=== PATIENT | male | born 1950 | race Caucasian/White ===

== ENCOUNTER → 2017-05-29 | Outpatient (CLI) | payer OTHER | END | disposition home or self-care (01) | LOC: HKI 13:02 | DX: M16.11 Unilateral primary osteoarthritis, right hip (principal); I10 Essential (primary) hypertension; Z96.642 Presence of left artificial hip joint; Z82.3 Family history of stroke | CPT/HCPCS: 73502 ==

== ENCOUNTER → 2017-06-29 | Outpatient (CLI) | payer OTHER | END | disposition home or self-care (01) | LOC: LAB 08:00 | DX: Z02.9 Encounter for administrative examinations, unspecified (principal) | CPT/HCPCS: 87081 ==

== ENCOUNTER 2017-07-09 08:22 | Inpatient (IN) | payer OTHER ==
[2017-07-09] MEDS: CEFAZOLIN 2 GM/50 ML (PMX) 50 ML (FOR WT < 120 KG) IVPB (06:00)
[2017-07-09] MEDS: TRANEXAMIC ACID 1,000 MG in D5W 100 ML AT CLOSURE X1 IVPB (06:00)
[2017-07-09] MEDS: TRANEXAMIC ACID 1,000 MG in D5W 100 ML AT INCISION X1 IVPB (06:00)
[~2017-07-09 08:22] MED LIST: LIDOCAINE 2% (SDV) 5 ML INJ
[2017-07-09] MEDS: ONDANSETRON 4 MG INJ IV ×4 (09:22→20:58)
[2017-07-09] MEDS: LANSOPRAZOLE 30 MG CAP PO (09:22)
[2017-07-09] MEDS: ACETAMINOPHEN 1000MG/100ML IV 100 ML IVPB (09:22)
[2017-07-09] MEDS: DEXAMETHASONE 4 MG/ML 1 ML INJ IV (09:22)
[2017-07-09] MEDS: LACTATED RINGER'S 1,000 ML IV (09:23)
[2017-07-09] MEDS ORDERED: BUPIVACAINE 0.75%/DEXT (SPINAL) 2 ML INJ (11:11)
[2017-07-09] MEDS ORDERED: EPINEPHrine 1 MG INJ (11:12)
[2017-07-09] MEDS ORDERED: ROCURONIUM 50 MG INJ (11:16)
[2017-07-09] MEDS ORDERED: PROPOFOL 20 ML (11:16)
[2017-07-09] MEDS ORDERED: MIDAZOLAM 1 MG/ML 2 ML INJ (11:19)
[2017-07-09] MEDS ORDERED: BACITRACIN 50000 UNITS INJ (11:44)
[2017-07-09] MEDS ORDERED: POLYMYXIN B 500000 UNIT INJ (11:46)
[2017-07-09] MEDS ORDERED: CEFAZOLIN 1 GM INJ (12:19)
[2017-07-09] MEDS: POLYMYXIN B 500000 UNIT INJ (12:41)
[2017-07-09] MEDS: BACITRACIN 50000 UNITS INJ (12:41)
[2017-07-09] MEDS ORDERED: GLYCOPYRROLATE 0.4 MG INJ (13:53)
[2017-07-09] MEDS ORDERED: NEOSTIGMINE 3 MG/3 ML SYRINGE (13:53)
[2017-07-09] MEDS ORDERED: CEFAZOLIN 1 GM/50 ML (PMX) 50 ML IVPB (14:24)
[2017-07-09] MEDS ORDERED: DOCUSATE SODIUM 100 MG CAP PO (14:24)
[2017-07-09] MEDS ORDERED: ASPIRIN (EC) 325 MG TAB PO (14:25)
[2017-07-09] MEDS ORDERED: ONDANSETRON 4 MG INJ (14:26)
[2017-07-09] MEDS ORDERED: HYDROmorphONE (0.2 MG/ML) 10ML SYG IV ×3 (14:26→14:30)
[2017-07-09] MEDS: HYDROmorphONE (0.2 MG/ML) 10ML SYG IV ×3 (14:28→15:00)
[2017-07-09] MEDS: DOCUSATE SODIUM 100 MG CAP PO (14:29)
[2017-07-09] MEDS: ASPIRIN (EC) 325 MG TAB PO (14:29)
[2017-07-09] MEDS: CEFAZOLIN 1 GM/50 ML (PMX) 50 ML IVPB ×2 (14:29→23:09)
[2017-07-09] MEDS ORDERED: SENNA/DOCUSATE NA (8.6MG/50MG) TAB PO (14:30)
[2017-07-09] MEDS ORDERED: BISACODYL 10 MG SUPP PR (14:30)
[2017-07-09] MEDS ORDERED: EPHEDrine SULFATE 50 MG/5 ML SYG IV (14:30)
[2017-07-09] MEDS ORDERED: FENTAnyl 50 MCG/ML VIAL IV ×3 (14:30)
[2017-07-09] MEDS ORDERED: ZOLPIDEM 5 MG TAB PO (14:30)
[2017-07-09] MEDS ORDERED: DIPHENHYDRAMINE 50 MG INJ IV ×2 (14:30)
[2017-07-09] MEDS ORDERED: oxyCODONE 5 MG TAB PO ×2 (14:30)
[2017-07-09] MEDS ORDERED: MAGNESIUM HYDROXIDE 30ML CUP PO (14:30)
[2017-07-09] MEDS ORDERED: LABETALOL HCL 20MG INJ IV (14:30)
[2017-07-09] MEDS ORDERED: hydrALAzine 20 MG INJ IV (14:30)
[2017-07-09] MEDS ORDERED: KETOROLAC 15 MG INJ IV (14:30)
[2017-07-09] MEDS ORDERED: TRIMETHOBENZAMIDE 100 MG/ML VIAL IM (14:30)
[2017-07-09] MEDS ORDERED: NALOXONE (0.4 MG/ML) INJ IV (14:30)
[2017-07-09] MEDS ORDERED: OXYCODONE/ACETAMINOPHEN (5/325) TAB PO ×2 (14:30)
[2017-07-09] MEDS ORDERED: NA PHOSPHATE/BIPHOS 133 ML ENEMA PR (14:30)
[2017-07-09] MEDS ORDERED: NACL 0.9% 3 ML SYG IV (14:30)
[2017-07-09] MEDS: MEPERIDINE 25 MG INJ IV (14:40)
[2017-07-09] MEDS: KETOROLAC 30 MG INJ IV (14:40)
[2017-07-09] MEDS: SOD CHLORIDE 0.9% 1,000 ML IV (16:34)
[2017-07-09] MEDS: oxyCODONE 5 MG TAB PO ×2 (17:27→21:04)
[2017-07-10] MEDS: SOD CHLORIDE 0.9% 1,000 ML IV ×2 (02:41→15:11)
[2017-07-10] MEDS: ONDANSETRON 4 MG INJ IV ×2 (03:22→08:09)
[2017-07-10 05:38] LABS: ADD MAN DIFF? NO
[2017-07-10 05:46] LABS: BASOPHILS % 0.1 % (0.0-2.0); EOSINOPHILS % 0.1 % (0.0-7.0); HEMATOCRIT 29.7 % (42.0-52.0); HEMOGLOBIN 10.4 g/dl (14.0-18.0); LYMPHOCYTES # 1.2 10^3/ul (0.8-2.9); LYMPHOCYTES % 12.9 % (15.0-51.0); MEAN CORPUSCULAR VOLUME 88.7 fl (82.0-101.0); MEAN PLATELET VOLUME 9.9 fl (7.4-10.4); MONOCYTE # 0.9 10^3/ul (0.3-0.9); MONOCYTES % 9.7 % (0.0-11.0); NEUTROPHIL # 7.2 10^3/ul (1.6-7.5); NEUTROPHILS % 76.9 % (39.0-77.0); PLATELET COUNT 186 10^3/UL (140-415); RED BLOOD COUNT 3.35 10^6/ul (4.70-6.10); RED CELL DISTRIBUTION WIDTH 13.6 % (11.5-14.5)
[2017-07-10 05:46] LABS: WHITE BLOOD COUNT 9.4 10^3/ul (4.8-10.8)
[2017-07-10] MEDS: LACTATED RINGER'S 1,000 ML IV (06:00)
[2017-07-10] MEDS: CEFAZOLIN 1 GM/50 ML (PMX) 50 ML IVPB (06:12)
[2017-07-10 06:14] LABS: ANION GAP 17 (8-16); BLOOD UREA NITROGEN 20 mg/dl (7-20); CALCIUM 8.8 mg/dl (8.4-10.2); CARBON DIOXIDE 24 mmol/L (21-31); CHLORIDE 103 mmol/L (97-110); CREATININE 0.98 mg/dl (0.61-1.24); GLUCOSE 133 mg/dl (70-220); POTASSIUM 4.1 mmol/L (3.5-5.1); SODIUM 140 mmol/L (135-144)
[2017-07-10] MEDS: BETHANECHOL 25 MG TAB PO (06:24)
[2017-07-10] MEDS: PANTOPRAZOLE (EC) 40 MG TAB PO (06:24)
[2017-07-10 07:47] LABS: ADD UMIC YES; UR ASCORBIC ACID NEGATIVE (NEGATIVE); UR BILIRUBIN (Dip) NEGATIVE (NEGATIVE); UR BLOOD (Dip) 1+ mg/dL (NEGATIVE); UR CLARITY CLEAR (CLEAR); UR COLOR YELLOW (YELLOW); UR GLUCOSE (Dip) NEGATIVE (NEGATIVE); UR KETONES (Dip) NEGATIVE (NEGATIVE); UR LEUKOCYTE ESTERASE (Dip) NEGATIVE Leu/ul (NEGATIVE); UR NITRITE (Dip) NEGATIVE (NEGATIVE); UR RBC 2 /HPF (0-5); UR SPECIFIC GRAVITY (Dip) 1.011 (1.003-1.030); UR TOTAL PROTEIN (Dip) NEGATIVE (NEGATIVE); UR UROBILINOGEN (Dip) NEGATIVE (NEGATIVE); UR WBC 1 /HPF (0-5)
[2017-07-10] MEDS: ASPIRIN (EC) 325 MG TAB PO (08:09)
[2017-07-10] MEDS: oxyCODONE 5 MG TAB PO ×3 (08:09→20:46)
[2017-07-10] MEDS: DOCUSATE SODIUM 100 MG CAP PO ×2 (08:10→20:39)
[2017-07-10] MEDS: FERROUS FUMARATE (SR) TAB PO ×2 (08:10→20:39)
[2017-07-10] MEDS: CELECOXIB 200 MG CAP PO (08:10)
[2017-07-10] MEDS: CELECOXIB 100 MG CAP PO (22:44)
[2017-07-11] MEDS: oxyCODONE 5 MG TAB PO (03:05)
[2017-07-11 05:47] LABS: ADD MAN DIFF? NO
[2017-07-11 05:51] LABS: BASOPHILS % 0.1 % (0.0-2.0); EOSINOPHILS # 0.1 10^3/ul (0.0-0.5); HEMATOCRIT 27.9 % (42.0-52.0); HEMOGLOBIN 9.6 g/dl (14.0-18.0); LYMPHOCYTES # 1.7 10^3/ul (0.8-2.9); MEAN CORPUSCULAR HEMOGLOBIN 30.8 pg (29.0-33.0); MEAN CORPUSCULAR HGB CONC 34.4 g/dl (32.0-37.0); MEAN CORPUSCULAR VOLUME 89.4 fl (82.0-101.0); MEAN PLATELET VOLUME 9.7 fl (7.4-10.4); MONOCYTE # 0.8 10^3/ul (0.3-0.9); MONOCYTES % 11.3 % (0.0-11.0); NEUTROPHIL # 4.5 10^3/ul (1.6-7.5); NEUTROPHILS % 63.2 % (39.0-77.0); PLATELET COUNT 158 10^3/UL (140-415); RED BLOOD COUNT 3.12 10^6/ul (4.70-6.10)
[2017-07-11 05:51] LABS: WHITE BLOOD COUNT 7.1 10^3/ul (4.8-10.8)
[2017-07-11] MEDS: LACTATED RINGER'S 1,000 ML IV (06:00)
[2017-07-11 06:18] LABS: ANION GAP 16 (8-16); BLOOD UREA NITROGEN 18 mg/dl (7-20); CALCIUM 8.8 mg/dl (8.4-10.2); CARBON DIOXIDE 27 mmol/L (21-31); CHLORIDE 106 mmol/L (97-110); CREATININE 0.85 mg/dl (0.61-1.24); GLUCOSE 91 mg/dl (70-220); POTASSIUM 3.9 mmol/L (3.5-5.1); SODIUM 145 mmol/L (135-144)
[2017-07-11] MEDS: PANTOPRAZOLE (EC) 40 MG TAB PO (07:00)
[2017-07-11] MEDS: DOCUSATE SODIUM 100 MG CAP PO (08:17)
[2017-07-11] MEDS: CELECOXIB 100 MG CAP PO (08:17)
[2017-07-11] MEDS: FERROUS FUMARATE (SR) TAB PO (08:17)
[2017-07-11] MEDS: ASPIRIN (EC) 325 MG TAB PO (08:17)
== END 2017-07-11 12:15 | disposition home health service (06) | DRG 470 ==
LOC: REC 08:22 → MS1 15:15
PROC: 0SR904A Replacement of Right Hip Joint with Ceramic on Polyethylene Synthetic Substitute, Uncemented, Open Approach (ICD-10-PCS; principal; 2017-07-09 07:30)
DX: M16.11 Unilateral primary osteoarthritis, right hip (principal); E66.01 Morbid (severe) obesity due to excess calories; Z68.32 Body mass index [BMI] 32.0-32.9, adult; E78.5 Hyperlipidemia, unspecified; I10 Essential (primary) hypertension
CPT/HCPCS: 72170; 80048; 81001; 85025; 86850; 86900; 86901; 87081; 87086; 93005; 97110; 97116; 97164; 97165; 97530

== ENCOUNTER → 2017-07-20 | Outpatient (CLI) | payer OTHER | END | disposition home or self-care (01) | LOC: HKI 09:41 | DX: Z09 Encounter for follow-up examination after completed treatment for conditions other than malignant neoplasm (principal); Z96.641 Presence of right artificial hip joint | CPT/HCPCS: 73502 ==

== ENCOUNTER → 2017-08-17 | Outpatient (CLI) | payer OTHER | END | disposition home or self-care (01) | LOC: HKI 09:54 | DX: Z47.1 Aftercare following joint replacement surgery (principal); Z96.641 Presence of right artificial hip joint | CPT/HCPCS: 73502 ==

== ENCOUNTER → 2017-09-28 | Outpatient (CLI) | payer MEDICARE, OTHER | END | disposition home or self-care (01) | LOC: HKI 09:04 | DX: Z47.1 Aftercare following joint replacement surgery (principal); Z96.643 Presence of artificial hip joint, bilateral | CPT/HCPCS: 73502 ==